=== PATIENT | male | born 1955 | race Caucasian/White ===

== ENCOUNTER → 2019-07-03 | Emergency (ER) | payer OTHER, MEDICAID ==
[~2019-07-03] VITALS: Ht 182.9 cm; Wt 90.7 kg
[2019-07-03 13:19] VITALS: BP 147/105
== END | disposition home or self-care (01) ==
LOC: ER 12:53
DX: R05 Cough (principal); R06.02 Shortness of breath; Z53.21 Procedure and treatment not carried out due to patient leaving prior to being seen by health care provider

== ENCOUNTER 2023-01-28 18:06 | Inpatient (IN) | payer OTHER, MEDICAID ==
[~2023-01-28] VITALS: Ht 182.9 cm; Wt 85.0 kg
[2023-01-28 18:45] LABS: Basophils # (auto) 0.1 10 ^3/uL (0-0.2); Basophils % (auto) 0.9 % (0.0-2.0); Eosinophils # (auto) 0.4 10 ^3/uL (0-0.8); Eosinophils % (auto) 5.7 % (0.0-7.0); Hematocrit 38.1 % (41.0-53.0); Hemoglobin 12.8 g/dL (13.5-17.5); Lymphocytes # (auto) 1.7 10 ^3/uL (0.4-5.4); Lymphocytes % (auto) 24.4 % (10.0-50.0); Mean Corpuscular Hemoglobin 29.7 pg (28.0-32.0); Mean Corpuscular Hgb Conc. 33.5 g/dL (32.0-36.0); Mean Corpuscular Volume 88.7 fL (80.0-100.0); Monocytes # (auto) 0.3 10 ^3/uL (0-1.3); Monocytes % (auto) 4.9 % (0.0-12.0); Neutrophils # (auto) 4.5 10 ^3/uL (1.6-8.6); Neutrophils % (auto) 64.1 % (37.0-80.0); Nucleated Red Blood Cells % 0.1 %; Red Cell Distribution Width 15.4 % (11.8-14.3)
[2023-01-28] MEDS ORDERED: SOD CHL 0.45% 1,000 ML IV ONE (19:00)
[2023-01-28] MEDS ORDERED: NITROGLYCERIN 0.4 MG SL TAB SL PRN (19:00)
[2023-01-28] MEDS ORDERED: MORPHINE SULFATE INJ 2 MG/ml SYRG IV PRN (19:00)
[2023-01-28] MEDS ORDERED: HEPARIN DRIP/D5W 100UNITS/ML 250 ML IV SCH ×2 (19:00→23:30)
[2023-01-28 19:03] LABS: Alanine Aminotransferase 30 U/L (7-40); Alkaline Phosphatase 117 U/L (46-116); Anion Gap 9 (5-15); Aspartate Aminotransferase 21 U/L (13-40); Blood Urea Nitrogen 14 mg/dL (9-23); Calcium 9.2 mg/dL (8.5-10.1); Carbon Dioxide 25 mmol/L (20-30); Chloride 108 mmol/L (98-107); Glucose 142 mg/dL (74-106); Potassium 3.8 mmol/L (3.5-5.1); Sodium 142 mmol/L (136-145)
[2023-01-28 19:04] LABS: Total Protein 6.9 g/dL (5.7-8.2)
[2023-01-28 20:06] LABS: INR 1.36 (0.9-1.15); Partial Thromboplastin Time 32.4 SEC (24.5-34.5)
[2023-01-28 21:10] VITALS: PULSE 86; RESP 18; O2SAT 97
[2023-01-29] VITALS (8 sets, daily range): BP systolic 102–140; BP diastolic 62–89; PULSE 64–89; RESP 17–18; TEMP 97.7–98.4; O2SAT 93–96
[2023-01-29] MEDS ORDERED: HEPARIN SODIUM (PORCINE) 5000 UNITS/ML 1ML VIAL IV ONE (00:15)
[2023-01-29 06:09] LABS: INR 1.42 (0.9-1.15); Prothrombin Time 14.6 sec (9.3-11.8)
[2023-01-29 06:11] LABS: Partial Thromboplastin Time 75.3 SEC (24.5-34.5)
[2023-01-29 06:12] LABS: Alanine Aminotransferase 25 U/L (7-40); Albumin 3.8 g/dL (3.2-4.8); Alkaline Phosphatase 111 U/L (46-116); Anion Gap 6 (5-15); Aspartate Aminotransferase 21 U/L (13-40); BUN/Creatinine Ratio 10.8 (10.0-20.0); Blood Urea Nitrogen 12 mg/dL (9-23); Carbon Dioxide 26 mmol/L (20-30); Chloride 110 mmol/L (98-107); Glucose 91 mg/dL (74-106); Potassium 3.5 mmol/L (3.5-5.1); Sodium 142 mmol/L (136-145)
[2023-01-29 06:13] LABS: Bilirubin, Total 0.8 mg/dL (0.2-1.0); Total Protein 6.7 g/dL (5.7-8.2)
[2023-01-29 10:26] LABS: INR 1.42 (0.9-1.15); Partial Thromboplastin Time 60.8 SEC (24.5-34.5); Prothrombin Time 14.6 sec (9.3-11.8)
[2023-01-29] MEDS ORDERED: IOHEXOL 350 MG/ML 100ML IJ ONE (10:26)
[2023-01-29] MEDS ORDERED: HEPARIN DRIP/D5W 100UNITS/ML 250 ML IV SCH ×2 (13:30)
[2023-01-29] MEDS: HEPARIN DRIP/D5W 100UNITS/ML 250 ML IV SCH ×2 (16:14→23:15)
[2023-01-29 20:47] LABS: INR 1.39 (0.9-1.15); Prothrombin Time 14.3 sec (9.3-11.8)
[2023-01-29 21:13] LABS: Partial Thromboplastin Time 93.4 SEC (24.5-34.5)
[2023-01-30] VITALS (7 sets, daily range): BP systolic 93–144; BP diastolic 53–84; PULSE 68–91; RESP 18–20; TEMP 97.7–98.3; O2SAT 95–96
[2023-01-30 06:15] LABS: Basophils # (auto) 0.1 10 ^3/uL (0-0.2); Basophils % (auto) 1.2 % (0.0-2.0); Eosinophils # (auto) 0.6 10 ^3/uL (0-0.8); Hematocrit 36.7 % (41.0-53.0); Hemoglobin 12.3 g/dL (13.5-17.5); Lymphocytes # (auto) 1.5 10 ^3/uL (0.4-5.4); Lymphocytes % (auto) 24.8 % (10.0-50.0); Mean Corpuscular Hemoglobin 29.7 pg (28.0-32.0); Mean Corpuscular Hgb Conc. 33.4 g/dL (32.0-36.0); Mean Corpuscular Volume 88.8 fL (80.0-100.0); Monocytes # (auto) 0.4 10 ^3/uL (0-1.3); Monocytes % (auto) 6.8 % (0.0-12.0); Neutrophils # (auto) 3.6 10 ^3/uL (1.6-8.6); Neutrophils % (auto) 58.2 % (37.0-80.0); Nucleated Red Blood Cells % 0.1 %; Red Blood Cells 4.13 10^6/uL (4.5-5.90); Red Cell Distribution Width 15.2 % (11.8-14.3); White Blood Cell 6.2 10^3/uL (4.4-10.8)
[2023-01-30 06:47] LABS: INR 1.44 (0.9-1.15); Prothrombin Time 14.8 sec (9.3-11.8)
[2023-01-30] MEDS: HEPARIN DRIP/D5W 100UNITS/ML 250 ML IV SCH ×3 (07:37→20:33)
[2023-01-30] MEDS ORDERED: IOHEXOL 350 MG/ML 100ML IJ ONE (08:21)
[2023-01-30 13:57] LABS: INR 1.36 (0.9-1.15); Partial Thromboplastin Time 62.4 SEC (24.5-34.5)
[2023-01-30 20:07] LABS: INR 1.35 (0.9-1.15); Partial Thromboplastin Time 56.9 SEC (24.5-34.5); Prothrombin Time 13.9 sec (9.3-11.8)
[2023-01-31 01:48] LABS: Basophils # (auto) 0.1 10 ^3/uL (0-0.2); Basophils % (auto) 0.9 % (0.0-2.0); Eosinophils # (auto) 0.6 10 ^3/uL (0-0.8); Eosinophils % (auto) 8.9 % (0.0-7.0); Hematocrit 37.6 % (41.0-53.0); Hemoglobin 12.6 g/dL (13.5-17.5); Lymphocytes # (auto) 1.6 10 ^3/uL (0.4-5.4); Lymphocytes % (auto) 24.3 % (10.0-50.0); Mean Corpuscular Hemoglobin 29.8 pg (28.0-32.0); Mean Corpuscular Hgb Conc. 33.5 g/dL (32.0-36.0); Mean Corpuscular Volume 88.9 fL (80.0-100.0); Monocytes # (auto) 0.5 10 ^3/uL (0-1.3); Monocytes % (auto) 7.6 % (0.0-12.0); Neutrophils # (auto) 3.9 10 ^3/uL (1.6-8.6); Neutrophils % (auto) 58.3 % (37.0-80.0); Nucleated Red Blood Cells % 0.1 %; Red Blood Cells 4.23 10^6/uL (4.5-5.90); Red Cell Distribution Width 15.1 % (11.8-14.3); White Blood Cell 6.7 10^3/uL (4.4-10.8)
[2023-01-31 02:06] LABS: INR 1.37 (0.9-1.15); Partial Thromboplastin Time 59.3 SEC (24.5-34.5); Prothrombin Time 14.1 sec (9.3-11.8)
[2023-01-31 05:00] VITALS: BP 96/65; PULSE 90; RESP 18; TEMP 97.2; O2SAT 96
[2023-01-31 08:00] VITALS: BP_SYST 129; BP_DIAS 70; BP_DIAS 79; PULSE 81; RESP 20; TEMP 97.9; O2SAT 96
[2023-01-31 12:00] VITALS: BP 114/67; PULSE 74; RESP 16; TEMP 98; O2SAT 97
[2023-01-31 16:00] VITALS: BP 115/74; PULSE 81; RESP 16; TEMP 98; O2SAT 96
[2023-01-31 20:00] VITALS: PULSE 73
[2023-01-31] MEDS: HEPARIN DRIP/D5W 100UNITS/ML 250 ML IV SCH (20:27)
[2023-01-31 22:00] VITALS: BP 122/75; PULSE 70; RESP 20; TEMP 97.7; O2SAT 95
[2023-02-01 03:18] LABS: INR 1.28 (0.9-1.15); Partial Thromboplastin Time 54.8 SEC (24.5-34.5); Prothrombin Time 13.2 sec (9.3-11.8)
[2023-02-01 05:00] VITALS: BP 108/66; PULSE 86; RESP 20; TEMP 97.9; O2SAT 94
[2023-02-01 07:13] LABS: Basophils # (auto) 0.1 10 ^3/uL (0-0.2); Basophils % (auto) 0.7 % (0.0-2.0); Eosinophils # (auto) 0.7 10 ^3/uL (0-0.8); Eosinophils % (auto) 8.9 % (0.0-7.0); Hematocrit 38.9 % (41.0-53.0); Hemoglobin 12.8 g/dL (13.5-17.5); Lymphocytes # (auto) 1.4 10 ^3/uL (0.4-5.4); Mean Corpuscular Hgb Conc. 32.8 g/dL (32.0-36.0); Mean Corpuscular Volume 88.5 fL (80.0-100.0); Monocytes # (auto) 0.5 10 ^3/uL (0-1.3); Monocytes % (auto) 6.5 % (0.0-12.0); Neutrophils # (auto) 5.3 10 ^3/uL (1.6-8.6); Neutrophils % (auto) 65.9 % (37.0-80.0); Red Cell Distribution Width 14.9 % (11.8-14.3)
[2023-02-01 08:00] VITALS: PULSE 75
[2023-02-01 08:05] LABS: Alanine Aminotransferase 26 U/L (7-40); Albumin 3.8 g/dL (3.2-4.8); Alkaline Phosphatase 105 U/L (46-116); Anion Gap 9 (5-15); Aspartate Aminotransferase 23 U/L (13-40); BUN/Creatinine Ratio 12.8 (10.0-20.0); Blood Urea Nitrogen 14 mg/dL (9-23); Carbon Dioxide 20 mmol/L (20-30); Chloride 110 mmol/L (98-107); Glucose 91 mg/dL (74-106); Potassium 3.8 mmol/L (3.5-5.1); Sodium 139 mmol/L (136-145)
[2023-02-01 08:06] LABS: Bilirubin, Total 0.9 mg/dL (0.2-1.0); Total Protein 6.6 g/dL (5.7-8.2)
[2023-02-01 08:39] VITALS: BP 115/81; PULSE 65; RESP 16; TEMP 98.6; O2SAT 99
[2023-02-01 12:06] LABS: Protein C Antigen 45 % (60-150)
[2023-02-01 13:00] VITALS: BP 114/80; PULSE 60; RESP 18; TEMP 98.5; O2SAT 95
[2023-02-01] MEDS ORDERED: APIX5TAB4 PO (16:36)
[2023-02-01 17:00] VITALS: BP 121/85; PULSE 82; RESP 20; TEMP 98.6; O2SAT 90
[2023-02-01] MEDS ORDERED: APIXABAN 5 MG TAB PO STA (17:21)
[2023-02-01 17:40] VITALS: BP 121/85; PULSE 82; RESP 20; TEMP 98.6; O2SAT 95
[2023-02-01 20:06] LABS: Anticardiolipin IgG Antibody <9 GPL U/mL (0-14); Anticardiolipin IgM Antibody 11 MPL U/mL (0-12)
[2023-02-03 12:06] LABS: Dilute Prothrombin Time(dPT) 50.6 sec (0.0-47.6); PTT-LA 43.8 sec (0.0-43.5); PTT-LA Mix 39.3 sec (0.0-40.5); Protein S-Functional 24 % (63-140); Thrombin Neutralization 21.6 sec (0.0-23.0); Thrombin Time 65.2 sec (0.0-23.0); Thrombin Time Mix 30.6 sec (0.0-23.0); dPT Confirm Ratio 0.98 Ratio (0.00-1.34); dRVVT 43.2 sec (0.0-47.0)
== END 2023-02-01 20:20 | disposition home or self-care (01) | DRG 299 ==
LOC: ER 18:06 → TELE 18:54 → TELE-WESTW 22:12
PROVIDERS: ADMIT Specialist; ATTEND Specialist
DX: I82.432 Acute embolism and thrombosis of left popliteal vein (principal); I26.99 Other pulmonary embolism without acute cor pulmonale; I82.412 Acute embolism and thrombosis of left femoral vein; E86.1 Hypovolemia; E11.9 Type 2 diabetes mellitus without complications; K21.9 Gastro-esophageal reflux disease without esophagitis; I95.9 Hypotension, unspecified; E87.8 Other disorders of electrolyte and fluid balance, not elsewhere classified; Z82.0 Family history of epilepsy and other diseases of the nervous system; Z86.711 Personal history of pulmonary embolism
CPT/HCPCS: 36415; 71045; 71260; 74177; 80053; 81241; 83036; 83880; 84484; 85025; 85302; 85306; 85379; 85610; 85613; 85670; 85705; 85730; 85732; 86147; 93005; 93306; 96360; 99291; G0378